=== PATIENT | male | born 1990 | race Two or more races ===

== ENCOUNTER 2020-08-18 14:54 | Emergency (ER) | payer MEDICAID ==
[~2020-08-18] VITALS: Ht 177.8 cm; Wt 79.4 kg
[2020-08-18 15:05] VITALS: BP 119/80
[2020-08-18] MEDS ORDERED: HYDR25SU33 RC (16:33)
[2020-08-18] MEDS ORDERED: DIPH25TA25 PO (16:33)
--- NOTE | 2020-08-18 16:59 | NUR ---
Patient discharged to home in stable condition. Written and verbal after care instructions given. Patient verbalizes understanding of instruction.
== END 2020-08-18 16:59 | disposition home or self-care (01) ==
LOC: ER 15:00
DX: R21 Rash and other nonspecific skin eruption (principal); K92.1 Melena; Z98.890 Other specified postprocedural states; Z88.6 Allergy status to analgesic agent; Z79.899 Other long term (current) drug therapy